=== PATIENT | male | born 1980 | race Caucasian/White ===

== ENCOUNTER 2023-10-13 15:18 | Emergency (ER) | payer SELFPAY ==
[2023-10-13 15:41] VITALS: BP 119/77; PULSE 76; RESP 18; TEMP 98.8; BMI 30.8
[2023-10-13] MEDS: ONDANSETRON 4 MG TABLET PO ONE (17:12)
[2023-10-13] MEDS: FAMOTIDINE 20 MG TABLET PO ONE (17:12)
[2023-10-13] MEDS ORDERED: FAMOTIDINE 20 MG TABLET ONE (17:13)
[2023-10-13] MEDS ORDERED: ONDANSETRON *ODT* 4 MG TABLET ONE (17:13)
[2023-10-13 17:23] LABS: BASO % 0.7 % (0-2.0); EOS % 1.9 % (0-4.5); HEMATOCRIT 41.8 % (35.4-49); HEMOGLOBIN 14.6 GM/dL (11.7-16.9); LYMPH % 22.7 % (8-40); MCH 28.1 pg (25.7-33.7); MCHC 34.9 g/dl (32.0-35.9); MEAN CELL VOLUME 80.6 fl (80-96); MEAN PLT VOLUME 7.3 fl (7.5-11.1); MONO % 6.2 % (3.8-10.2); NEUT % 68.5 % (42.8-82.8); PLATELET COUNT 265 10^3/uL (134-434); RBC 5.19 M/mm3 (4.00-5.60); RDW 12.9 % (11.9-15.9); WHITE BLOOD COUNT 7.9 K/mm3 (4.0-10.0)
[2023-10-13 17:46] LABS: POTASSIUM 3.6 mmol/L (3.5-5.1)
[2023-10-13 17:49] LABS: ALBUMIN 4.2 g/dl (3.4-5.0); BLOOD UREA NITROGEN 20.3 mg/dL (7-18)
[2023-10-13 17:52] LABS: CREATININE 0.7 mg/dL (0.55-1.3)
[2023-10-13 17:53] LABS: BILIRUBIN,TOTAL 0.4 mg/dL (0.2-1)
[2023-10-13 17:54] LABS: TOT PROT 7.6 g/dl (6.4-8.2)
== END 2023-10-13 18:40 | disposition home or self-care (01) ==
LOC: JER 15:18
DX: K21.9 Gastro-esophageal reflux disease without esophagitis (principal); R11.0 Nausea
CPT/HCPCS: 36415; 80053; 83690; 85025; 99283-25

== ENCOUNTER 2023-10-14 15:33 | Emergency (ER) | payer SELFPAY ==
[2023-10-14 16:09] VITALS: BP 104/71; PULSE 75; RESP 19; TEMP 98.3; BMI 30.8
== END 2023-10-14 17:30 | disposition short-term general hospital (02) ==
LOC: JER 15:33
DX: T23.291A Burn of second degree of multiple sites of right wrist and hand, initial encounter (principal); X10.1XXA Contact with hot food, initial encounter; Y93.G3 Activity, cooking and baking
CPT/HCPCS: 99285-25